=== PATIENT | male | born 1960 | race Caucasian/White ===

== ENCOUNTER 2024-01-16 07:04 | Day surgery (SDC) | payer OTHER ==
[2024-01-09 16:03] LABS: BASOPHILS % (AUTO) 0.2 % (0-1); EOSINOPHILS # (AUTO) 0.1 X10'3 (0-0.9); EOSINOPHILS % (AUTO) 0.8 % (0-6); LYMPHOCYTES # (AUTO) 2.3 X10'3 (1.1-4.8); LYMPHOCYTES % (AUTO) 31.1 % (21-51); MEAN CORPUSCULAR HGB CONC 33.8 g/dL (33.0-36.5); MEAN CORPUSCULAR VOLUME 94.8 FL (78-98); MEAN PLATELET VOLUME 8.4 FL (7.4-10.4); MONOCYTES # (AUTO) 0.4 X10'3 (0-0.9); MONOCYTES % (AUTO) 5.8 % (2-12); NEUTROPHILS # (AUTO) 4.6 X10'3 (1.8-7.7); NEUTROPHILS % (AUTO) 62.1 % (42-75); PRE OP HEMATOCRIT 45.7 % (42.0-52.0); PRE OP HEMOGLOBIN 15.4 g/dL (14.0-17.9); PRE OP PLATELET COUNT 234 X10'3 (140-440); PRE OP WHITE BLOOD COUNT 7.4 10'3 (4.8-10.8); RED BLOOD COUNT 4.82 X10'6 (4.70-6.10); RED CELL DISTRIBUTION WIDTH 13.3 % (11.5-14.5)
[2024-01-09 16:18] LABS: ALBUMIN 3.9 G/DL (3.4-5.0); ALKALINE PHOSPHATASE 87 IU/L (46-116); BLOOD UREA NITROGEN 21 MG/DL (7-18); BUN/CREATININE RATIO 26.6 (10.0-20.0); CALCIUM 9.2 MG/DL (8.5-10.1); CHLORIDE 106 MMOL/L (99-107); CREATININE 0.79 MG/DL (0.60-1.10); PRE OP ALT 37 U/L (30-65); PRE OP ANION GAP 9 (8-16); PRE OP AST 17 U/L (10-37); PRE OP BILIRUB, TOTAL 0.8 MG/DL (0.0-1.0); PRE OP GLUCOSE 126 MG/DL (70-104); PRE OP POTASSIUM 4.2 MMOL/L (3.4-5.1); PRE OP SODIUM 143 MMOL/L (135-145); TOTAL CARBON DIOXIDE 27.9 MMOL/L (24-32); TOTAL PROTEIN 7.7 G/DL (6.4-8.2); eGFR > 90 ML/MIN
[2024-01-09 16:37] LABS: HEMOGLOBIN A1C 6.3 % (4.5-6.2)
[~2024-01-16] VITALS: Ht 172.7 cm; Wt 103.0 kg
[2024-01-16] VITALS (26 sets, daily range): BP systolic 102–152; BP diastolic 59–90; PULSE 57–86; RESP 12–18; TEMP 97.4–98.5; O2SAT 96–100
[2024-01-16] MEDS: ringers solution, lacted 1,000 ML IV SCH (05:00)
[2024-01-16] MEDS: vancomycin 1,500 MG in NS 300ml IV soln IV ONE (05:30)
[2024-01-16] MEDS: metoclopramide 5 mg/ml inj IV ONE (05:30)
[2024-01-16] MEDS: gabapentin 300mg capsule PO ONE (05:30)
[2024-01-16] MEDS: acetaminophen 325mg tablet PO ONE (05:30)
[2024-01-16] MEDS: famotidine 20mg tablet PO ONE (05:30)
[2024-01-16] MEDS: cefazolin 2gm/D5W 100mL 100 ML IV ONE (05:30)
[2024-01-16] MEDS: celeCOXIB 100mg capsule PO ONE (05:30)
[2024-01-16] MEDS: DOCUMENT DATE & TIME OF BETA-BLOCKER PO ONE (05:30)
[~2024-01-16 07:04] MED LIST: APIX5TAB3 PO; ASPI-529 PO; ATOR20TA PO; BUTCHERS BROOM PO; DIPH-186 PO; HYDR-3973 PO; ISOS30TA9 PO; METF-1203 PO; METO25TA6 PO; NITR0.4T48 SL; OMEG100037 PO; SEMA0.258 SUBCUT; ZOLP10TA PO
[2024-01-16] MEDS: gabapentin 300mg capsule ONE (07:30)
[2024-01-16] MEDS: celeCOXIB 100mg capsule ONE (07:30)
[2024-01-16] MEDS: oxyCODONE SR 10mg (sust. release) tab PO ONE (07:30)
[2024-01-16] MEDS: acetaminophen 325mg tablet ONE (07:30)
[2024-01-16] MEDS: tranexamic acid inj. 1,000 MG in normal saline 100ml IV soln 90 ML IV ONE ×2 (07:30→17:00)
[2024-01-16] MEDS: metoclopramide 5 mg/ml inj ONE (07:31)
[2024-01-16] MEDS: oxyCODONE SR 10mg (sust. release) tab -2 tabs (20mg) PO ONE (08:56)
[2024-01-16] MEDS ORDERED: LIDOcaine 1%/PF 5ML 10 MG/ML VIAL ONE (09:51)
[2024-01-16] MEDS ORDERED: fentaNYL/PF 50MCG/1 ML 2ML syringe ONE (09:55)
[2024-01-16] MEDS ORDERED: midazolam 1 mg/ML 2ml injection ONE ×2 (10:09→10:32)
[2024-01-16] MEDS ORDERED: propofol inj 20 ML IV ONE ×3 (10:13)
[2024-01-16] MEDS: vancomycin 1,000mg inj ONE (10:43)
[2024-01-16] MEDS: BUPIVACAINE/MELOXICAM 14 ML VIAL IL ONE (10:43)
[2024-01-16] MEDS ORDERED: ROPIVAcaine 0.5% (5mg/ml) 30ml vial ONE (11:45)
[2024-01-16] MEDS ORDERED: dexamethasone sod phosphate 4mg/ml inj. ONE (11:45)
[2024-01-16] MEDS: ketorolac tromethamine 15mg/ml inj. IV ONE (13:10)
[2024-01-16] MEDS ORDERED: ondansetron/PF 4mg/2ml inj IV PRN (13:10)
[2024-01-16] MEDS ORDERED: morphine 2 MG/ML inj. syringe IV PRN (13:10)
[2024-01-16] MEDS ORDERED: meperidine/PF 25mg/ml syringe IV PRN ×3 (13:10)
[2024-01-16] MEDS ORDERED: morphine 4 MG/ML inj SYRINge IV PRN (13:10)
[2024-01-16] MEDS ORDERED: hydrALAZINE 20mg/ml inj. IV PRN (13:10)
[2024-01-16] MEDS ORDERED: proCHLORperazine 10 MG/2 ml inj IV PRN (13:10)
[2024-01-16] MEDS ORDERED: ringers solution, lacted 1,000 ML IV SCH (13:10)
[2024-01-16] MEDS: acetaminophen 1,000mg/100ml IV 100 ML IV ONE (13:10)
[2024-01-16] MEDS ORDERED: labetalol 20mg/4ml (5mg/ml) syringe IV PRN (13:10)
[2024-01-16] MEDS ORDERED: nitroGLYCERIN 0.4mg SUBLingual tab SL PRN (15:00)
[2024-01-16] MEDS ORDERED: glucagon, human recombinant 1mg kit SUBCUT PRN (15:05)
[2024-01-16] MEDS ORDERED: acetaminophen 325mg tablet PO PRN (15:05)
[2024-01-16] MEDS ORDERED: bisacodyl 10mg suppository rectal RC PRN (15:05)
[2024-01-16] MEDS ORDERED: magnesium hydroxide 30ml (MOM) UD suspension PO PRN (15:05)
[2024-01-16] MEDS: MESSAGE TO PHARMACY PO ONE (15:05)
[2024-01-16] MEDS ORDERED: DEXTROSE 15 GM of carb/4 tabs (each vial/BOTTLE has 4 tablets) PO PRN ×2 (15:05)
[2024-01-16] MEDS ORDERED: naloxone 0.4 mg/ml inj IV PRN (15:05)
[2024-01-16] MEDS ORDERED: HYDROmorphone inj. 0.5 MG/0.5 ML DISP.SYRIN IV PRN (15:05)
[2024-01-16] MEDS ORDERED: diphenhydrAMINE 25mg capsule PO PRN ×2 (15:05)
[2024-01-16] MEDS ORDERED: dextrose 50%-water 50ml dispensing syringe IV PRN ×2 (15:05)
[2024-01-16] MEDS ORDERED: insulin Lispro (HumaLOG) vial - multi-dose SQ SCH (15:05)
[2024-01-16] MEDS: ondansetron/PF 4mg/2ml inj IV PRN (16:19)
[2024-01-16] MEDS: cefazolin 2gm/D5W 100mL 100 ML IV SCH (17:00)
[2024-01-16] MEDS: HYDROcodone/acetaminophen 10/325mg tab PO PRN (17:25)
[2024-01-16] MEDS: LidoCAINE 2% Topical Jelly 11mL syringe MM ONE (17:28)
[2024-01-16] MEDS: HYDROmorphone 1 mg/ml syringe IV PRN (20:40)
[2024-01-16] MEDS: insulin glargine (Lantus) pen - multi-dose SQ SCH (21:00)
[2024-01-16] MEDS: VANCOMYCIN 1,500MG inj. 1,500 MG in normal saline 500ml IV soln 300 ML IV ONE (21:33)
[2024-01-16] MEDS: potassium cl 20mEq in 1/2 NS 1,000 ML IV SCH (21:33)
[2024-01-16] MEDS: gabapentin 300mg capsule PO SCH (21:51)
[2024-01-16] MEDS: apixaban 5mg tablet PO SCH (21:51)
[2024-01-16] MEDS: ascorbic acid 500mg tablet PO SCH (21:51)
[2024-01-16] MEDS: sennosides 8.6mg tablet PO SCH (21:52)
[2024-01-16] MEDS: zolpidem 5mg tablet PO SCH (21:52)
[2024-01-17 02:00] VITALS: BP 123/69; PULSE 85; RESP 16; TEMP 97.8; O2SAT 97
[2024-01-17 07:00] VITALS: RESP 16; O2SAT 97
[2024-01-17] MEDS: aspirin 325mg tablet PO SCH (07:42)
[2024-01-17] MEDS: atorvastatin 20mg tablet PO SCH (07:42)
[2024-01-17 07:43] VITALS: BP_SYST 124; PULSE 88
[2024-01-17] MEDS: multivitamins, therapeutics tablet PO SCH (07:43)
[2024-01-17] MEDS: metoprolol tartrate 25mg tablet PO SCH (07:43)
[2024-01-17] MEDS: celeCOXIB 100mg capsule PO SCH (07:44)
[2024-01-17] MEDS: isosorbide dinitrate 30mg tablet PO SCH (07:45)
[2024-01-17] MEDS ORDERED: diphenoxylate/atropine tablet (Lomotil) PO SCH (08:00)
[2024-01-17 08:42] LABS: BASOPHILS % (AUTO) 0.2 % (0-1); EOSINOPHILS # (AUTO) 0.1 X10'3 (0-0.9); EOSINOPHILS % (AUTO) 0.6 % (0-6); HEMATOCRIT 41.3 % (42.0-52.0); HEMOGLOBIN 13.8 g/dl (14.0-17.9); LYMPHOCYTES # (AUTO) 2.5 X10'3 (1.1-4.8); LYMPHOCYTES % (AUTO) 23.3 % (21-51); MEAN CORPUSCULAR HEMOGLOBIN 31.6 PG (27.0-31.0); MEAN CORPUSCULAR HGB CONC 33.4 g/dL (33.0-36.5); MEAN CORPUSCULAR VOLUME 94.7 FL (78-98); MONOCYTES # (AUTO) 0.9 X10'3 (0-0.9); MONOCYTES % (AUTO) 8.5 % (2-12); NEUTROPHILS # (AUTO) 7.3 X10'3 (1.8-7.7); NEUTROPHILS % (AUTO) 67.4 % (42-75); PLATELET COUNT 231 X10'3 (140-440); RED BLOOD COUNT 4.37 X10'6 (4.70-6.10); WHITE BLOOD COUNT 10.9 X10'3 (4.5-11.0)
[2024-01-17 09:55] LABS: HEMOGLOBIN A1C 6.4 % (4.5-6.2)
[2024-01-17 10:06] VITALS: RESP 16
[2024-01-17] MEDS: HYDROcodone/acetaminophen 10/325mg tab PO PRN (10:06)
[2024-01-17 11:55] LABS: ANION GAP 13 (8-16); CHLORIDE 106 MMOL/L (99-107); POTASSIUM 4.5 MMOL/L (3.5-5.1); SODIUM 143 MMOL/L (135-145); TOTAL CARBON DIOXIDE 24.3 MMOL/L (24-32)
== END 2024-01-17 11:00 | disposition home or self-care (01) ==
LOC: UNDOADMIN 07:04 → PAS IN 07:04 → PAS 07:04 → ORTHO 4S 08:00 → EDSTATUS 10:00 → UNDOADMIN 13:32 → PAS IN 13:32 → PAS 13:45 → PAS IN 14:05 → ORTHO 4S 14:05 → PAS 01-17 11:00
PROVIDERS: ATTEND Orthopaedic Surgery
DX: M17.11 Unilateral primary osteoarthritis, right knee (principal); M21.161 Varus deformity, not elsewhere classified, right knee; I10 Essential (primary) hypertension; E11.9 Type 2 diabetes mellitus without complications; I48.91 Unspecified atrial fibrillation; I25.10 Atherosclerotic heart disease of native coronary artery without angina pectoris; G89.18 Other acute postprocedural pain; Z79.899 Other long term (current) drug therapy; Z79.84 Long term (current) use of oral hypoglycemic drugs; Z72.89 Other problems related to lifestyle; Z96.652 Presence of left artificial knee joint; Z90.49 Acquired absence of other specified parts of digestive tract; Z79.01 Long term (current) use of anticoagulants; Z79.82 Long term (current) use of aspirin; Z95.5 Presence of coronary angioplasty implant and graft
CPT/HCPCS: 27447; 36415; 64447; 73560; 80051; 80053; 82948; 83036; 85025; 86885; 86900; 86901; 87081; 97110; 97116; 97161; C1713; C1776; J0690; J1100; J1170; J1815; J2250; J2405; J2704; J2765; J2795; J3010; J3370; J3480; J3490; J7030; J7040; J7120; Z7506; Z7508; Z7512; 97530; A4215; A6449; A7000; A9272; C1758; G0378